=== PATIENT | female | born 2000 | race Two or more races ===

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

== ENCOUNTER 2022-06-23 02:46 | Emergency (ER) | payer OTHER ==
[~2022-06-23] VITALS: Ht 157.5 cm; Wt 82.8 kg
[~2022-06-23 02:46] MED LIST changes: +IBUP800T26 PO; +ONDA-144 PO
[2022-06-23 02:59] VITALS: BP 136/78
[2022-06-23 03:39] LABS: Basophils # (auto) 0 10 ^3/uL (0-0.2); Basophils % (auto) 0.4 % (0.0-2.0); Eosinophils # (auto) 0.2 10 ^3/uL (0-0.8); Eosinophils % (auto) 2.2 % (0.0-7.0); Hematocrit 39.7 % (36.0-46.0); Hemoglobin 13.1 g/dL (12.2-16.2); Lymphocytes # (auto) 3.7 10 ^3/uL (0.4-5.4); Lymphocytes % (auto) 38.1 % (10.0-50.0); Mean Corpuscular Hemoglobin 29.2 pg (28.0-32.0); Mean Corpuscular Hgb Conc. 32.9 g/dL (32.0-36.0); Mean Corpuscular Volume 88.8 fL (80.0-100.0); Monocytes # (auto) 0.7 10 ^3/uL (0-1.3); Neutrophils % (auto) 52.3 % (37.0-80.0); Nucleated Red Blood Cells % 0.1 %; Red Blood Cells 4.48 10^6/uL (4.0-5.20); Red Cell Distribution Width 13.7 % (11.8-14.3); White Blood Cell 9.7 10^3/uL (4.4-10.8)
[2022-06-23 03:49] LABS: Albumin 3.8 g/dL (3.4-5.0); Calcium 8.9 mg/dL (8.5-10.1)
[2022-06-23 03:52] LABS: BUN/Creatinine Ratio 6.7 (10.0-20.0); Bilirubin, Total 0.4 mg/dL (0.2-1.0); Total Protein 7.3 g/dL (6.4-8.2)
[2022-06-23] MEDS ORDERED: DICY10CA PO (04:40)
== END 2022-06-23 07:41 | disposition left against medical advice (07) ==
LOC: ER 02:46
DX: K80.20 Calculus of gallbladder without cholecystitis without obstruction (principal)
CPT/HCPCS: 36415; 80053; 83690; 85025

== ENCOUNTER 2022-06-27 03:31 | Emergency (ER) | payer OTHER ==
[~2022-06-27] VITALS: Ht 157.5 cm; Wt 82.5 kg
[~2022-06-27 03:31] MED LIST changes: +DICY10CA PO
[2022-06-27 04:35] LABS: Basophils # (auto) 0 10 ^3/uL (0-0.2); Basophils % (auto) 0.5 % (0.0-2.0); Eosinophils # (auto) 0.2 10 ^3/uL (0-0.8); Eosinophils % (auto) 2.2 % (0.0-7.0); Hematocrit 41.7 % (36.0-46.0); Hemoglobin 13.9 g/dL (12.2-16.2); Lymphocytes # (auto) 3.2 10 ^3/uL (0.4-5.4); Lymphocytes % (auto) 33.9 % (10.0-50.0); Mean Corpuscular Hemoglobin 29.5 pg (28.0-32.0); Mean Corpuscular Hgb Conc. 33.4 g/dL (32.0-36.0); Mean Corpuscular Volume 88.3 fL (80.0-100.0); Monocytes # (auto) 0.9 10 ^3/uL (0-1.3); Monocytes % (auto) 9.4 % (0.0-12.0); Neutrophils # (auto) 5.1 10 ^3/uL (1.6-8.6); Red Blood Cells 4.72 10^6/uL (4.0-5.20); Red Cell Distribution Width 13.7 % (11.8-14.3); White Blood Cell 9.5 10^3/uL (4.4-10.8)
[2022-06-27 04:45] LABS: Potassium 3.5 mmol/L (3.5-5.1)
[2022-06-27 04:50] LABS: Albumin 3.9 g/dL (3.4-5.0); BUN/Creatinine Ratio 11.4 (10.0-20.0); Calcium 9.5 mg/dL (8.5-10.1)
[2022-06-27 04:53] LABS: Bilirubin, Total 0.5 mg/dL (0.2-1.0); Total Protein 7.6 g/dL (6.4-8.2)
[2022-06-27 05:56] LABS: Urine Bacteria NONE SEEN /hpf (None Seen); Urine Blood 3+ /uL (Negative); Urine Mucus FEW (None Seen); Urine Specific Gravity 1.015 (1.001-1.035); Urine WBC 12 /hpf (0 - 5)
[2022-06-27] MEDS ORDERED: PIPERACILLIN-TAZOB 3.375GM 100 ML IV ONE (06:30)
[2022-06-27] MEDS ORDERED: IBUP600T27 PO (07:11)
[2022-06-27] MEDS ORDERED: ONDA-144 PO (07:11)
[2022-06-27] MEDS ORDERED: CEPH-510 PO (07:12)
[2022-06-27 08:04] VITALS: BP 128/74
== END 2022-06-27 09:26 | disposition home or self-care (01) ==
LOC: ER 03:31
DX: K80.50 Calculus of bile duct without cholangitis or cholecystitis without obstruction (principal); N39.0 Urinary tract infection, site not specified; Z88.6 Allergy status to analgesic agent
CPT/HCPCS: 36415; 74176; 80053; 81001; 83690; 85025; 96365; 99285; J2543